=== PATIENT | male | born 1995 | race Caucasian/White ===

== ENCOUNTER 2017-12-04 08:29 | Emergency (ER) | payer OTHER ==
[~2017-12-04] VITALS: Ht 177.8 cm; Wt 65.8 kg
[~2017-12-04 08:29] MED LIST: PERCOCET 325 MG1 TA2 PO
[2017-12-04 08:33] VITALS: BP 115/68
--- NOTE | 2017-12-04 08:48 | ED THROAT/DENTAL COMPLAINT ---
History of Present Illness General Chief Complaint: Sore Throat, Dental Pain Stated Complaint: SORE THROAT Source: patient Exam Limitations: no limitations Vital Signs & Intake/Output Vital Signs & Intake/Output Vital Signs Date Time Temp Pulse Resp B/P B/P Pulse O2 O2 Flow FiO2 Mean Ox Delivery Rate 12/04 0833 99.1 98 18 115/68 98 Room Air Allergies Coded Allergies: NO KNOWN ALLERGIES (10/28/11) Reconcile Medications Amoxicillin 875 MG TABLET 1 TAB PO BID SORE THROAT Ibuprofen 800 MG TABLET 1 TAB PO TID PAIN Methylprednisolone. (Medrol) 4 MG TAB.DS.PK 1 DP PO AD SORE THROAT 6 on day 1 then reduce by one tablet daily until gone Ondansetron (Zofran Odt) 4 MG TAB.RAPDIS 1 TAB SL TID NAUSEA Triage Note: 22 YO MALE TO TRIAGE FOR EVAL OF SORE THROAT SINCE YESTERDAY. Triage Nurses Notes Reviewed? yes Onset: Abrupt Duration: day(s): (1) Timing: remote history Injury Environment: home HPI: 22-year-old male comes into emergency room complaints of cough sore throat and vomiting. Symptoms began yesterday with a cough and mild sore throat. Sore throat got worse this morning as well as the cough. Few episodes of vomiting. Denies any abdominal pain. Denies any diarrhea. Some chills. hurts when he swallows. Comes in for further evaluation. Past History Travel History Traveled to [place] past 21 day No Medical History Any Pertinent Medical History? see below for history Neurological: NONE EENT: NONE Cardiovascular: NONE Respiratory: NONE Gastrointestinal: NONE Hepatic: NONE Renal: NONE Musculoskeletal: NONE Psychiatric: NONE Endocrine: NONE Tetanus Vaccine: 12/18/12 Surgical History Surgical History: non-contributory Psychosocial History What is your primary language Panamanian Tobacco Use: Current Daily Use Daily Tobacco Use Amount/Type: => 5 Cigarettes daily Family History Hx Contributory? No Review of Systems Review of Systems Constitutional: Reports: no symptoms. EENTM: Reports: see HPI. Respiratory: Reports: see HPI. Cardiovascular: Reports: no symptoms. GI: Reports: see HPI. Genitourinary: Reports: no symptoms. Musculoskeletal: Reports: no symptoms. Skin: Reports: no symptoms. Neurological/Psychological: Reports: no symptoms. Hematologic/Endocrine: Reports: no symptoms. Immunologic/Allergic: Reports: no symptoms. All Other Systems: Reviewed and Negative Physical Exam Physical Exam General Appearance: well developed/nourished, alert Head: atraumatic Eyes: Bilateral: normal appearance. Nose: normal inspection Mouth/Throat: Pharyngeal erythema, no exudates Neck: normal inspection Cardiovascular/Respiratory: no respiratory distress Gastrointestinal: soft, nontender, Back: normal inspection Neurologic/Psych: awake, alert, oriented x 3 Skin: intact, normal color Core Measures ACS in differential dx? No Sepsis Present: No Sepsis Focused Exam Completed? No Progress Differential Diagnosis: aspirated tooth, carious tooth, epiglottitis, Ludwigs angina, meningitis, odontogenic abscess, iza-tonsillar abscess, pharyngeal for. body, stomatitis/gingivitis, strep pharyngitis, tooth fracture Plan of Care: Orders Procedure Date/time Status THROAT CULTURE W/QUICK STREP 12/04 832 Active Comments: 12/04/2017 10:20:49 AM Patient clinically looks well. Patient is in no apparent distress. Patient is nontoxic-appearing. Resting comfortably in room. No evidence of peritonsillar abscess. Symptoms are most consistent with viral illness but patient treated with amoxicillin due to history of strep with negative rapid streps of positive cultures. No abdominal pain on exam. Departure Departure Disposition: HOME OR SELF CARE Condition: Stable Clinical Impression Primary Impression: URI (upper respiratory infection) Referrals: Patient Has No Primary Care Dr (PCP/Family) Additional Instructions: Take amoxicillin, Medrol Dosepak, Zofran, and ibuprofen as prescribed. Return if any concerns worsening symptoms. Drink plenty of fluids. Rest. Please go over all results of today's visit with your primary care doctor. Contact your primary care doctor to let them know you were here in the emergency room. There may be nonspecific findings which may not be related to your visit today here in the emergency room but may require further evaluation and chronic monitoring by your primary care doctor. If you had a laceration today the chance of foreign body always remains. You should follow-up with your primary care doctor for recheck in 3-5 days for a wound check. If you had an x-ray done there is a chance that a fracture could have been missed on initial read and you should follow-up with your primary care doctor for repeat x-rays if symptoms persist. If your blood pressure was elevated here in the emergency room please have rechecked by mundo primary care doctor within the next 48. If you were prescribed a narcotic here in the emergency room or any type of controlled substances you're not allowed to drive while taking this medication or operate any type of heavy machinery. Narcotics can make you feel lightheaded dizziness nausea and can cause constipation. You may need to pickle processor a stool softener. Thank you for choosing [facility] emergency room. Please return to the emergency room immediately if you have any other concerns worsening of symptoms. Departure Forms: Customer Survey General Discharge Information Prescriptions: Current Visit Scripts Methylprednisolone. (Medrol) 1 DP PO AD #1 DP 6 on day 1 then reduce by one tablet daily until gone Ibuprofen 1 TAB PO TID #30 TAB Amoxicillin 1 TAB PO BID #14 TAB Ondansetron (Zofran Odt) 1 TAB SL TID #10 TAB
[2017-12-04] MEDS ORDERED: ZOFRAN ODT4 M1 SL (09:24)
[2017-12-04] MEDS ORDERED: AMOXICILLIN875 M1 PO (09:24)
[2017-12-04] MEDS ORDERED: IBUPROFEN800 M1 PO (09:24)
[2017-12-04] MEDS ORDERED: MEDROL4 M2 PO (09:24)
== END 2017-12-04 09:39 ==
LOC: ERH 08:29
DX: J06.9 Acute upper respiratory infection, unspecified (principal); F17.210 Nicotine dependence, cigarettes, uncomplicated

== ENCOUNTER 2018-02-28 10:08 | Emergency (ER) | payer OTHER ==
[~2018-02-28] VITALS: Ht 177.8 cm; Wt 65.8 kg
[~2018-02-28 10:08] MED LIST changes: +AMOXICILLIN875 M1 PO; +IBUPROFEN800 M1 PO; +MEDROL4 M2 PO; +ZOFRAN ODT4 M1 SL
--- NOTE | 2018-02-28 11:45 | ED EAR COMPLAINT ---
History of Present Illness General Chief Complaint: Ear Complaints Stated Complaint: RT EAR PAIN Source: patient Exam Limitations: no limitations Vital Signs & Intake/Output Vital Signs & Intake/Output Vital Signs Date Time Temp Pulse Resp B/P B/P Pulse O2 O2 Flow FiO2 Mean Ox Delivery Rate 02/28 1111 Room Air 02/28 1026 97.9 79 18 109/71 98 Room Air Room Air Allergies Coded Allergies: NO KNOWN ALLERGIES (10/28/11) Reconcile Medications Amoxicillin 875 MG TABLET 1 TAB PO BID OTITIS Amoxicillin 875 MG TABLET 1 TAB PO BID SORE THROAT Ciprofloxacin HCl/Dexameth (Ciprodex Otic Suspension) 0.3 %-0.1 % DROPS.SUSP 4 GTT OT BID OTITIS EXTERNA Ibuprofen 800 MG TABLET 1 TAB PO TID PRN PAIN Ibuprofen 800 MG TABLET 1 TAB PO TID PAIN Methylprednisolone. (Medrol) 4 MG TAB.DS.PK 1 DP PO AD SORE THROAT 6 on day 1 then reduce by one tablet daily until gone Ondansetron (Zofran Odt) 4 MG TAB.RAPDIS 1 TAB SL TID NAUSEA Triage Note: PT TO ED WITH MOTHER WITH C/O RIGHT EAR PAIN SINCE THIS MORNING, TRIED TO USE WAX REMOVER "USUALLY WORKS BUT ALOT OF PAIN THIS MORNING". Triage Nurses Notes Reviewed? yes Onset: Abrupt Duration: day(s): (1), constant, continues in ED, getting worse Timing: single episode today Injury Environment: home Severity: mild, moderate Severity Numbers: 7 No Modifying Factors: none HPI: 22-year-old male with no medical history presents for evaluation of right ear pain. Patient reports symptoms started today when he woke up. He states he has muffled hearing. Patient has a history of cerumen impactions in both ears. Mom reports that she did get some eygx-ecj-ijdfkph drops this morning did not help to remove the wax. also tried Q-tips. There's been no ear discharge fever. No recent swimming. They also tried flushing it with hydrogen peroxide and water. (Asher Argueta) Past History Travel History Traveled to [place] past 21 day No Medical History Any Pertinent Medical History? see below for history Neurological: NONE EENT: NONE Cardiovascular: NONE Respiratory: NONE Gastrointestinal: NONE Hepatic: NONE Renal: NONE Musculoskeletal: NONE Psychiatric: NONE Endocrine: NONE Blood Disorders: NONE Cancer(s): NONE DIRECT CARE SUPERVISOR/Reproductive: NONE Tetanus Vaccine: 12/18/12 Surgical History Surgical History: non-contributory Psychosocial History What is your primary language Ukrainian Tobacco Use: Current Daily Use Daily Tobacco Use Amount/Type: => 5 Cigarettes daily ETOH Use: denies use Illicit Drug Use: denies illicit drug use Family History Hx Contributory? No (Asher Argueta) Review of Systems Review of Systems Constitutional: Reports: no symptoms. EENTM: Reports: ear pain, hearing changes. Respiratory: Reports: no symptoms. Cardiovascular: Reports: no symptoms. GI: Reports: no symptoms. Genitourinary: Reports: no symptoms. Musculoskeletal: Reports: no symptoms. Skin: Reports: no symptoms. Neurological/Psychological: Reports: no symptoms. Hematologic/Endocrine: Reports: no symptoms. Immunologic/Allergic: Reports: no symptoms. All Other Systems: Reviewed and Negative (Asher Argueta) Physical Exam Physical Exam General Appearance: well developed/nourished, no apparent distress, alert, awake Head: atraumatic, normal appearance Eyes: Bilateral: normal appearance, PERRL, EOMI. Ears: Left: canal normal, Tympanic normal. Right: other (see comments below). Nose: normal inspection Mouth/Throat: normal mouth inspection, pharynx normal Neck: normal inspection, supple, full range of motion Cardiovascular/Respiratory: normal breath sounds, normal peripheral pulses, regular rate/rhythm, no respiratory distress Back: normal inspection, normal range of motion, no vertebral tenderness Neurologic/Psych: no motor/sensory deficits, awake, alert, oriented x 3, normal gait, normal mood/affect Skin: intact, normal color, warm/dry Comments: The right external auditory canal is erythematous with a superficial oozing abrasion. No purulent discharge. The tympanic membrane is obstructed by cerumen. After flushing the ear large amount of cerumen was removed but there is still some cerumen blocking the TM. There is tenderness palpation of the tragus. There is no mastoid tenderness no perivauricular lymphadenopathy (Asher Argueta) Progress Differential Diagnoses I considered the following diagnoses in my evaluation of the patient: [Otitis media, otitis externa, cerumen impaction] Plan of Care: Patient is here with some impaction and otitis externa. The right ear was flushed with hydroperoxide and warm water large amount of cerumen was removed but there is still some cerumen blocking the TM. Patient does report some improvement in his symptoms but still has some muffled hearing. Multiple times for me to remove this with difficulty. The external auditory canal is swollen due to otitis externa making it more difficult. Patient was instructed to keep his ears dry avoid Q-tips. He'll be covered with amoxicillin since the TM cannot be visualized. Keep the ears dry. Also given Ciprodex and ibuprofen. Advised to continue using debrox to soften the wax and aid removal. He was referred to ENT. Discussed return precautions patient agrees the plan Initial ED EKG: none (Asher Argueta) Departure Departure Disposition: HOME OR SELF CARE Condition: Stable Clinical Impression Primary Impression: Otitis externa Qualifiers: Otitis externa type: other infective Chronicity: acute Laterality: right Qualified Code: H60.391 - Other infective otitis externa, right ear Secondary Impressions: Impacted cerumen of right ear Referrals: Christina Kinney MD Patient Has No Primary Care Dr (PCP/Family) Additional Instructions: Take oral antibiotics and apply topical antibiotic drops as directed for the full course. Use [id number]-umppmeo ear wax softeners as directed. Ibuprofen for pain. Do not stick anything in your ear such as Q-tips. Keep ears as dry as possible. Make a follow-up with Dr. Kinney ear nose and throat doctor for a recheck and further evaluation. Return with fever or worsening pain or any other concerns. Departure Forms: Customer Survey General Discharge Information Prescriptions: Current Visit Scripts Ibuprofen 1 TAB PO TID PRN PAIN #30 TAB Ciprofloxacin HCl/Dexameth (Ciprodex Otic Suspension) 4 GTT OT BID #1 BOT Amoxicillin 1 TAB PO BID #20 TAB (Asher Argueta) PA/CHILDREN'S COUNSELOR Co-Sign Statement Statement: ED Attending supervision documentation- [] I saw and evaluated the patient. I have also reviewed all the pertinent lab results and diagnostic results. I agree with the findings and the plan of care as documented in the PA's/CHILDREN'S COUNSELOR's documentation. [X] I have reviewed the ED Record and agree with the PA's/CHILDREN'S COUNSELOR's documentation. [] Additions or exceptions (if any) to the PAs/CHILDREN'S COUNSELOR's note and plan are summarized below: [] (Jayy Kuhn DO
[2018-02-28] MEDS ORDERED: IBUPROFEN800 M1 PO (11:48)
[2018-02-28] MEDS ORDERED: CIPRODEX OTIC7.5 ML OT (11:48)
[2018-02-28] MEDS ORDERED: AMOXICILLIN875 M1 PO (11:48)
[2018-02-28 11:55] VITALS: BP 116/71
== END 2018-02-28 11:56 ==
LOC: ERH 10:08
DX: H66.91 Otitis media, unspecified, right ear (principal); F17.210 Nicotine dependence, cigarettes, uncomplicated